=== PATIENT | female | born 1990 | race Caucasian/White ===

== ENCOUNTER 2018-04-26 07:03 | Emergency (ER) | payer MEDICAID ==
[2018-04-26 07:24] LABS: BASO % 0.5 % (0-6); EOS % 3.3 % (0-6); GRAN % 60.7 % (47-80); HEMOGLOBIN 13.4 gm/dl (11.6-16.0); LYMPH % 26.4 % (16-45); MEAN CORPUSCULAR HEMOGLOBIN 30.3 pg (27-33); MEAN CORPUSCULAR HGB CONC 31.9 g/dl (32-36); MEAN PLATELET VOLUME 8.6 fl (7.4-10.4); MONO % 9.1 % (0-9); PLATELET COUNT 304 K/uL (130-400); RED BLOOD COUNT 4.42 M/uL (3.80-5.40)
--- NOTE | 2018-04-26 07:29 | Emergency Department Record ---
History of Present Illness - General Chief Complaint: Abdominal Pain Stated Complaint: ABDOMINAL PAIN Time Seen by Provider: 04/26/18 07:07 Source: Patient, RN notes reviewed Mode of Arrival: Ambulatory - History of Present Illness Initial Comments: abdominal pain and vomiting started 3-4 days ago and vomiting only today and small BM 2 days ago and her typical BM's are one a week. Yesterday ate dinner chicken and potatoes and filled up quickly. PMH depression and bipolar ,she has two children and youngest is 3.5 years.PSH hysterectomy october 2017, three lap surgerys for endometriosis, she uses miralax 17gm PRN . Last dose 3 days ago in the last 2 weeks she has used 4 doses of miralax. Primary DR Tien Jones medical Onset/Timin -: Days(s) Location: RUQ Radiation: R flank, RUQ, RLQ Severity: Moderate Quality: Aching, Cramping Consistency: Constant, Intermittent - Related Data LMP (females 10-50): other Home Medications Medication Instructions Recorded Confirmed Last Taken Lamotrigine [Lamictal] 200 mg PO DAILY 04/26/18 04/26/18 1 Day Ago ~04/25/18 Quetiapine Fumarate [Seroquel] 100 mg PO QHS 04/26/18 04/26/18 1 Day Ago ~04/25/18 Previous Rx's Medication Instructions Recorded Dicyclomine HCl [Bentyl] 10 mg PO Q8H #30 cap 04/26/18 Allergies Allergy/AdvReac Type Severity Reaction Status Date / Time No Known Drug Allergies Allergy Verified 04/26/18 07:15 Travel Screening - Travel/Exposure Within Last 30 Days Have you traveled within the last 30 days?: No - Travel/Exposure Within Last Year Have you traveled outside the [place] in the last year?: No - Additonal Travel Details Have you been exposed to anyone with a communicable illness?: No - Travel Symptoms Symptom Screening: None Review of Systems Reviewed: No additional complaints except as noted below Constitutional: Reports: As per HPI. Denies: Chills, Fever, Malaise, Night sweats, Weakness, Weight change Eyes: Reports: As per HPI. Denies: Eye discharge, Eye pain, Photophobia, Vision change ENT: Reports: As per HPI. Denies: Congestion, Dental pain, Ear pain, Epistaxis , Hearing loss, Throat pain Respiratory: Reports: As per HPI. Denies: Cough, Dyspnea, Hemoptysis, Stridor, Wheezes Cardiovascular: Reports: As per HPI. Denies: Arrhythmia, Chest pain, Dyspnea on exertion, Edema, Murmurs, Orthopnea, Palpitations, Paroxysmal nocturnal dyspnea, Rheumatic Fever, Syncope Endocrine: Reports: As per HPI. Denies: Fatigue, Heat or cold intolerance, Polydipsia, Polyuria Gastrointestinal: Reports: As per HPI, Abdominal pain, Nausea, Vomiting. Denies : Constipation, Diarrhea, Hematemesis, Hematochezia, Melena Genitourinary: Reports: As per HPI. Denies: Abnormal menses, Discharge, Dyspareunia, Dysuria, Frequency, Hematuria, Incontinence, Retention, Urgency Musculoskeletal: Reports: As per HPI. Denies: Arthralgia, Back pain, Gout, Joint swelling, Myalgia, Neck pain Skin: Reports: As per HPI. Denies: Bruising, Change in color, Change in hair/ nails, Lesions, Pruritus, Rash Neurological: Reports: As per HPI. Denies: Abnormal gait, Confusion, Headache, Numbness, Paresthesias, Seizure, Tingling, Tremors, Vertigo, Weakness Psychiatric: Reports: As per HPI. Denies: Anxiety, Auditory hallucinations, Depression, Homicidal thoughts, Suicidal thoughts, Visual hallucinations Hematological/Lymphatic: Reports: As per HPI. Denies: Anemia, Blood Clots, Easy bleeding, Easy bruising, Swollen glands Past Medical History - SOCIAL HISTORY Smoking Status: Light tobacco smoker (<10/day) Alcohol Use: Rare Drug Use Detail:: Marijuana - RESPIRATORY Hx Respiratory Disorders: Yes - CARDIOVASCULAR Hx Cardio Disorders: No - NEURO Hx Neuro Disorders: No - GI Hx GI Disorders: No - Hx Genitourinary Disorders: Yes Comment:: endometriosis - ENDOCRINE Hx Endocrine Disorders: No Hx Diabetes: No Hx Thyroid Disease: No - MUSCULOSKELETAL Hx Musculoskeletal Disorders: No - PSYCH Hx Psych Problems: No - HEMATOLOGY/ONCOLOGY Hx Hematology/Oncology Disorders: No Family Medical History Any Significant Family History?: Yes Hx Diabetes: Grandparents Hx Heart Disease: Father, Grandparents Physical Exam - General General Appearance: Alert, Oriented x3, Cooperative, No acute distress - Head Head exam: Normal inspection - Eye Eye exam: Normal appearance, PERRL Pupils: Normal accommodation - ENT ENT exam: Normal exam, Mucous membranes moist, Normal external ear exam, Normal orophraynx, TM's normal bilaterally Ear exam: Normal external inspection. negative: External canal tenderness Nasal Exam: Normal inspection. negative: Discharge, Sinus tenderness Mouth exam: Normal external inspection, Tongue normal Teeth exam: Normal inspection. negative: Dental caries Throat exam: Normal inspection. negative: Tonsillar erythema, Tonsillar exudate - Neck Neck exam: Normal inspection, Full ROM. negative: Tenderness - Respiratory Respiratory exam: Normal lung sounds bilaterally. negative: Respiratory distress - Cardiovascular Cardiovascular Exam: Regular rate, Normal rhythm, Normal heart sounds - GI/Abdominal GI/Abdominal exam: Soft, Normal bowel sounds, Distended, Tenderness (right upper quad pain and lower abd pain). negative: Mass, Rebound, Rigid - Rectal Rectal exam: Normal rectal tone, Other (no stool only loose stool at tip of finger). negative: Black stool, Bloody stool, Decreased rectal tone, Fecal impaction - exam: Deferred - Extremities Extremities exam: Normal inspection, Full ROM, Normal capillary refill. negative: Tenderness - Back Back exam: Reports: Normal inspection, Full ROM. Denies: Muscle spasm, Rash noted, Tenderness - Neurological Neurological exam: Alert, Normal gait, Oriented X3, Reflexes normal - Psychiatric Psychiatric exam: Normal affect, Normal mood - Skin Skin exam: Dry, Intact, Normal color, Warm Course Vital Signs 04/26/18 07:08 Temperature 97.7 F Pulse Rate 82 Respiratory 20 Rate Blood Pressure 112/86 Pulse Ox 98 - Reevaluation(s) Reevaluation #1: patient had a formed BM while in the ED 04/26/18 09:39 Reevaluation #2: 04/26/18 09:44 feeling better Medical Decision Making - Data Complexity MDM Data: X-Ray Ordered and/or Reviewed (ABd xray shows stool in the left colon and US of abd essentially neg no gall stones) - Lab Data Result diagrams: 04/26/18 07:15 04/26/18 07:15 Disposition Clinical Impression: Abdominal pain Qualifiers: Abdominal location: lower abdomen, unspecified Qualified Code(s): R10.30 - Lower abdominal pain, unspecified Constipation Qualifiers: Constipation type: slow transit constipation Qualified Code(s): K59.01 - Slow transit constipation Disposition: Home, Self-Care Condition: (1) Good Instructions: Constipation (ED) Additional Instructions: take miralax 17 gms twice a day for one week than once a day follow up with family Dr in 5-7 days Prescriptions: Dicyclomine HCl [Bentyl] 10 mg PO Q8H #30 cap Forms: Patient Portal Access Time of Disposition: 09:44 Quality - Quality Measures Quality Measures: N/A - Blood Pressure Screening Does Patient Have Any of the Following: No Blood Pressure Classification: Pre-Hypertensive BP Reading Systolic Measurement: 112 Diastolic Measurement: 86 Screening for High Blood Pressure: < Pre-Hypertensive BP, F/U Documented > [ [id number]] Pre-Hypertensive Follow-up Interventions: Referral to alternative/primary care provider.
[2018-04-26] MEDS ORDERED: ONDANSETRON HCL IV 4 MG/2 ML VIAL IVP ONE (07:33)
[2018-04-26] MEDS ORDERED: 0.9 % SODIUM CHLORIDE 1,000 ML BAG IV ONE (07:33)
[2018-04-26 07:37] LABS: BLOOD UREA NITROGEN 16 mg/dL (6-20); CREATININE 0.7 mg/dL (0.5-0.9); EST GLOMERULAR FILTRATION RATE > 60 mL/min
[2018-04-26 07:40] LABS: GLUCOSE,RANDOM 101 mg/dL (74-109)
[2018-04-26 07:43] LABS: LIPASE 53 U/L (13-60)
[2018-04-26 07:45] LABS: URINE APPEARANCE CLEAR; URINE BILIRUBIN NEGATIVE (NEGATIVE); URINE BLOOD TRACE-I (NEGATIVE); URINE COLOR YELLOW; URINE GLUCOSE (UA) NEGATIVE (NEGATIVE); URINE KETONE NEGATIVE (NEGATIVE); URINE LEUKOCYTE ESTERASE NEGATIVE (NEGATIVE); URINE NITRITE NEGATIVE (NEGATIVE); URINE PROTEIN NEGATIVE (NEGATIVE); URINE UROBILINOGEN 0.2 E.U./dL (0.20 - 1.00)
[2018-04-26 07:49] LABS: HCG,QUALITATIVE URINE NEGATIVE (NEGATIVE); URINE RBC 0 - 2 (NONE SEEN); URINE WBC NONE SEEN (0-2/hpf)
[2018-04-26 08:01] LABS: ALBUMIN 4.5 g/dL (4.0-5.0); BILIRUBIN,DIRECT 0.2 mg/dL (0-0.3); BILIRUBIN,TOTAL 0.3 mg/dL (0.2-1.0); TOTAL PROTEIN 7.2 g/dL (6.6-8.7)
[2018-04-26] MEDS ORDERED: DICYCLOMINE HCL 10 MG CAPSULE PO ONE (09:44)
--- NOTE | 2018-04-26 10:48 | RADIOLOGY REPORT ---
EXAM: ACUTE ABDOMEN SERIES WHICH INCLUDES A PA CHEST HISTORY: RIGHT UPPER QUADRANT AND LOWER ABDOMINAL PAIN, BLOATING, CRAMPING AND VOMITING FOR FOUR DAYS. TECHNIQUE: PA view of the chest and supine and upright views of the abdomen were obtained. Comparison: None. FINDINGS: CHEST: The heart size is normal. The lungs appear expanded with no acute infiltrate seen. No pleural effusion or pneumothorax evident. ABDOMEN: Prominent stool left side of the colon. No prominently dilated air filled loops of bowel identified. There are some mild air fluid levels in the upright view. This is nonspecific although probably represents some mild ileus. No free air identified. Small pelvic calcifications are also nonspecific although presumably phleboliths. IMPRESSION: 1. THE CHEST APPEARS NEGATIVE. 2. MODERATE STOOL LEFT SIDE OF THE COLON. THERE ARE A FEW NONSPECIFIC AIR FLUID LEVELS. JOB NUMBER: [id number] [facility]
--- NOTE | 2018-04-26 11:00 | ULTRASOUND REPORT ---
EXAM: COMPLETE ABDOMEN ULTRASOUND HISTORY: RIGHT UPPER QUADRANT ABDOMINAL PAIN FOR FOUR DAYS. TECHNIQUE: Complete real-time ultrasound examination of the abdomen was obtained. Comparison: No prior abdomen ultrasound. FINDINGS: The majority of the pancreas is seen and appears negative with no pancreatic mass or peripancreatic fluid collection evident. The abdominal aorta appears negative with no aneurysm seen. The IVC was negative as seen. The liver also appears negative with no hepatic mass or intrahepatic biliary dilatation seen. The right kidney measures 11 cm in length with no hydronephrosis evident. No gallstones are seen within the gallbladder and no pericholecystic fluid collection evident. The gallbladder wall diffusely appears slightly prominent, nonspecific and may just be related to incomplete distention. The common duct was seen and was of normal caliber. The barrel rifler button indicates a negative sonographic Lozada's sign. The spleen appears negative with no splenic mass evident. The left kidney measures about 10.5 cm in length with no hydronephrosis evident. IMPRESSION: 1. NO GALLSTONES OR BILIARY DILATATION SEEN. MILD DIFFUSE PROMINENCE OF THE GALLBLADDER WALL, NONSPECIFIC. 2. THE REMAINDER OF THE ABDOMEN ULTRASOUND APPEARS NEGATIVE. NO HYDRONEPHROSIS EVIDENT. JOB NUMBER: [id number] [facility]
== END 2018-04-26 09:58 | disposition home or self-care (01) ==
LOC: ER 07:03
DX: K59.01 Slow transit constipation (principal); R10.11 Right upper quadrant pain; F17.210 Nicotine dependence, cigarettes, uncomplicated
CPT/HCPCS: 74022; 76700; 80048; 80076; 81001; 81025; 82272; 83690; 85025; 96374; 99284; J2405; J7030